=== PATIENT | female | born 1980 | race Caucasian/White ===

== ENCOUNTER 2022-01-24 15:00 | Outpatient (RCR) | payer OTHER, SELFPAY ==
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
== END 2022-04-20 09:37 | disposition home or self-care (01) ==
PROVIDERS: Visit Provider Physician Assistant
DX: M79.641 Pain in right hand (principal); S62.91XA Unspecified fracture of right hand, initial encounter for closed fracture; Z51.89 Encounter for other specified aftercare
CPT/HCPCS: 97110; 97140; X5282

== ENCOUNTER 2022-04-10 11:22 | Outpatient (CLI) | payer OTHER, SELFPAY ==
[2022-04-11 17:25] LABS: Follicle Stimulating Hormone 10.1 IU/L
== END 2022-04-10 11:23 | disposition home or self-care (01) ==
LOC: NFLDREF 11:23
PROVIDERS: PCP Physician Assistant Medical; Visit Provider Obstetrics & Gynecology
DX: Z01.419 Encounter for gynecological examination (general) (routine) without abnormal findings (principal); R63.5 Abnormal weight gain; F32.A Depression, unspecified; R23.2 Flushing
CPT/HCPCS: 83001; 84443

== ENCOUNTER 2022-05-09 12:38 | Outpatient (CLI) | payer OTHER, SELFPAY ==
--- NOTE | 2022-05-09 13:00 | CRLHL7_ITS ---
For Patients: As a result of the Century Cures Act, medical imaging exams and procedure reports are released immediately into your electronic medical record. You may view this report before your referring provider. If you have questions, please contact your health care provider. BILATERAL SCREENING MAMMOGRAM WITH COMPUTER-AIDED DETECTION AND TOMOSYNTHESIS TECHNIQUE: CC and MLO views were obtained. These mammographic images have been obtained using full-field digital technique. These mammographic images were interpreted with the benefit of computer-aided detection. Breast Tomosynthesis was used in this interpretation. COMPARISON FILM: Debary 09/07/15. FINDINGS: There are scattered areas of fibroglandular density IMPRESSION: There is no radiographic evidence for malignancy. ASSESSMENT: BI-RADS Category 1: Negative RECOMMENDATION: Routine screening mammogram in 1 year. A lay language report of this examination will be provided to the patient. Mandeep Prasad M.D. Diagnostic Radiologist [email or web address] CARSON/tyler Transcribed: 7:37 p.m. KENNEY/Dictated by: Mandeep Prasad MD @ 05/15/2022 11:46:00 AM (Electronically Signed)
== END 2022-05-09 12:39 | disposition home or self-care (01) ==
LOC: MAMMO 12:39
PROVIDERS: PCP Physician Assistant Medical; Visit Provider Obstetrics & Gynecology
DX: Z12.31 Encounter for screening mammogram for malignant neoplasm of breast (principal)
CPT/HCPCS: 77063; 77067

== ENCOUNTER 2022-05-14 09:15 | Outpatient (CLI) | payer OTHER, SELFPAY ==
--- NOTE | 2022-05-14 10:15 | MR_ITS ---
[address] [address] Phone:?[phone] Fax:?[phone] Referring Physician Information: Bartolome White [address] [facility] [address] Phone:?[phone] Fax:?[phone] Patient:?Merna Boykin D.O.B:?1980 Sex:?Female Phone:?[phone] [facility] MRN:?[id number] Exam Date:?05/14/2022 ? EXAM: MRI of the RIGHT HAND, without contrast CLINICAL INFORMATION: Female, 42 years old, with right hand pain. INDICATION: Evaluate hand pain. PRIOR SURGERY: None reported. PLAIN FILMS: None available. COMPARISONS: No prior MRIs available. TECHNICAL INFORMATION: Using a 1.5T MR scanner and a localizing surface coil: coronals: PD, T2, STIR sagittals: PD, T2 axials: PD, T2 SEDATION: None. CONTRAST: None. FINDINGS: Chronic-appearing, healed deformity of the 5th metacarpal head/neck (sagittal PD series 7 image 31 and coronal PD series 6 image 9). The osseous structures are otherwise unremarkable without stress/occult fractures, bone marrow edema or osseous mass. The joints of the hand included are intact without pathologic narrowing or effusions. Collateral capsuloligamentous structures of the joints appear intact. Flexor and extensor tendons are intact, without rupture, tendinopathy, tenosynovitis or longitudinal splitting. A skin marker was placed by the patient along the dorsum of the hand at the level of the metacarpals, radially. There is no underlying soft tissue or osseous lesion at this site. Musculature of the hand appears unremarkable without masses, rupture or strain. IMPRESSION: 1. Chronic-appearing, healed deformity of the 5th metacarpal head/neck. No acute fracture or osseous stress reaction. 2. No soft tissue or osseous abnormality identified adjacent to the skin marker placed by the patient. 3. No myotendinous abnormality. 4. No ligamentous sprain/tear. 5. No soft tissue abnormality. BC Electronically signed on 05/14/2022 12:32:00 PM by Braeden Castro M.D.
== END 2022-05-14 09:16 | disposition home or self-care (01) ==
LOC: MRI 09:16
PROVIDERS: PCP Physician Assistant Medical; Visit Provider Physician Assistant
DX: M79.641 Pain in right hand (principal)
CPT/HCPCS: 73218

== ENCOUNTER 2022-05-21 08:32 | Outpatient (CLI) | payer OTHER, SELFPAY ==
[2022-05-21 14:01] LABS: Albumin* 4.7 g/dL (3.3-5.0); Chloride* 105 mmol/L (96-114)
[2022-05-21 14:02] LABS: Potassium* 4.9 mmol/L (3.6-5.1); Sodium* 140 mmol/L (135-149)
[2022-05-21 14:03] LABS: Cholesterol* 169 mg/dL (90-199)
[2022-05-21 14:04] LABS: Alkaline Phosphatase* 66 U/L (40-150); Aspartate Amino Transferase* 26 U/L (12-35); Bilirubin Total* 0.5 mg/dL (0.1-1.5); Blood Urea Nitrogen* 14 mg/dL (5-24); Carbon Dioxide* 28 mmol/L (20-32); Creatinine* 0.8 mg/dL (0.5-1.5); Estimated Glomerular Filt Rate 95 ml/min; Glucose* 79 mg/dL (60-115); Total Protein* 7.2 g/dL (6.0-8.3)
[2022-05-21 14:05] LABS: Alanine Aminotransferase* 19 U/L (4-35); Calcium* 9.5 mg/dL (8.4-10.6); HDL Cholesterol* 59 mg/dL (>=50); LDL Cholesterol Calculated 95 mg/dL (<100); Triglycerides* 77 mg/dL (40-149)
== END 2022-05-21 08:33 | disposition home or self-care (01) ==
PROVIDERS: PCP Family Medicine; Visit Provider Family Medicine
DX: Z01.419 Encounter for gynecological examination (general) (routine) without abnormal findings (principal); F32.A Depression, unspecified; F41.9 Anxiety disorder, unspecified; R63.5 Abnormal weight gain
CPT/HCPCS: 80053; 80061

== ENCOUNTER 2023-06-11 08:37 | Outpatient (CLI) | payer OTHER, SELFPAY ==
--- NOTE | 2023-06-11 09:15 | CRLHL7_ITS ---
For Patients: As a result of the Century Cures Act, medical imaging exams and procedure reports are released immediately into your electronic medical record. You may view this report before your referring provider. If you have questions, please contact your health care provider. BILATERAL SCREENING MAMMOGRAM WITH COMPUTER-AIDED DETECTION AND TOMOSYNTHESIS TECHNIQUE: CC and MLO views were obtained. These mammographic images have been obtained using full-field digital technique. These mammographic images were interpreted with the benefit of computer-aided detection. Breast Tomosynthesis was used in this interpretation. COMPARISON FILM: 05/09/22. FINDINGS: There are scattered areas of fibroglandular density IMPRESSION: There is no radiographic evidence for malignancy. ASSESSMENT: BI-RADS Category 1: Negative RECOMMENDATION: Routine screening mammogram in 1 year. A lay language report of this examination will be provided to the patient. Mandeep Prasad M.D. Diagnostic Radiologist [email or web address] KENNEY/Dictated by: Mandeep Prasad MD @ 06/11/2023 11:12:00 AM (Electronically Signed)
== END 2023-06-11 08:38 | disposition home or self-care (01) ==
LOC: MAMMO 08:39
PROVIDERS: PCP Family Medicine; Visit Provider Obstetrics & Gynecology
DX: Z12.31 Encounter for screening mammogram for malignant neoplasm of breast (principal)
CPT/HCPCS: 77063; 77067

== ENCOUNTER 2023-06-26 08:45 | Outpatient (CLI) | payer OTHER, SELFPAY ==
--- NOTE | 2023-06-26 09:00 | CRLHL7_ITS ---
For Patients: As a result of the 21st Century Cures Act, medical imaging exams and procedure reports are released immediately into your electronic medical record. You may view this report before your referring provider. If you have questions, please contact your health care provider. INDICATION: INDENT APPRECIATED ON LEFT PARIETAL AREA, BURNING SENSATION, CONCERN FOR KYLE-MYLES DISEASE OR OTHER OSTEOLYSIS TECHNIQUE: CT of the head without contrast. Coronal and sagittal reformats. Bone and soft tissue algorithms. COMPARISON: XR 06/14/23 FINDINGS: No acute intracranial hemorrhage or extraaxial collection. No evidence of acute cortical infarction. No mass effect or midline shift. The ventricles and sulci are age appropriate. Orbital contents are normal. No calvarial fractures. No lytic or sclerotic osseous lesions within the calvarium or skull base. Scalp and other imaged soft tissue structures are normal. Mastoid air cells are clear. IMPRESSION: No acute intracranial abnormality. No calvarial lesion. Please note that all CT scans at this facility use dose modulation, iterative reconstruction, and/or weight-based dosing when appropriate to reduce radiation dose to as low as reasonably achievable. Dictated by Mandeep Rose MD @ 06/26/2023 2:06:58 PM (Electronically Signed)
== END 2023-06-26 08:46 | disposition home or self-care (01) ==
LOC: CT 08:45
PROVIDERS: PCP Family Medicine; Visit Provider Family Medicine
DX: R20.8 Other disturbances of skin sensation (principal); Q75.8 Other specified congenital malformations of skull and face bones; R68.89 Other general symptoms and signs
CPT/HCPCS: 70450

== ENCOUNTER 2024-07-03 15:12 | Outpatient (CLI) | payer OTHER, SELFPAY ==
--- NOTE | 2024-07-03 15:30 | CRLHL7_ITS ---
For Patients: As a result of the Century Cures Act, medical imaging exams and procedure reports are released immediately into your electronic medical record. You may view this report before your referring provider. If you have questions, please contact your health care provider. INDICATION: Headache. Ear pressure. COMPARISON: 06/26/2023. TECHNIQUE: Noncontrast CT head. FINDINGS: Normal brain parenchymal morphology and signal intensity. No intracranial hemorrhage. No abnormal ventricular dilatation. Cavum velum interpositum which is a normal anatomic variant. Intracranial vascular flow voids are preserved. No mass effect. No midline shift. No restricted diffusion to suggest acute ischemia. No abnormal enhancing or enhancing lesions within the brain parenchyma. Dedicated sequence of the skullbase and IAC`s demonstrates normal course of cranial nerves 7 and 8 from the root entry zone to the fundus of the IAC`s. Normal fluid signal within the cochlea and vestibule. Normal root entry zone of the bilateral trigeminal nerves. No abnormal mass or enhancement within cerebellopontine angles or IAC`s. Bilateral orbits are unremarkable. Normal appearing sella. Visualized paranasal sinuses are unremarkable. Small left mastoid effusion. IMPRESSION: 1. No acute intracranial abnormality 2. Normal brain parenchymal morphology and signal intensity. 3. No abnormal enhancement or enhancing lesions 4. Dedicated sequences of the skull base and IAC`s demonstrates normal course of cranial nerves. No abnormal mass or enhancement 5. Small left mastoid effusion Dictated by Lonnie Juan MD @ 07/06/2024 10:45:39 AM (Electronically Signed)
== END 2024-07-03 15:13 | disposition home or self-care (01) ==
LOC: MRI 15:14
PROVIDERS: PCP Family Medicine; Visit Provider Family Medicine
DX: R51.9 Headache, unspecified (principal); H74.8X1 Other specified disorders of right middle ear and mastoid; H93.19 Tinnitus, unspecified ear
CPT/HCPCS: 70553; A9575

== ENCOUNTER 2024-07-28 09:50 | Outpatient (CLI) | payer OTHER, SELFPAY | END 2024-07-28 09:51 | disposition home or self-care (01) | PROVIDERS: PCP Family Medicine; Visit Provider Family Medicine | DX: R25.2 Cramp and spasm (principal); Z13.228 Encounter for screening for other metabolic disorders; Z13.220 Encounter for screening for lipoid disorders | CPT/HCPCS: 80053; 80061; 83735 ==

== ENCOUNTER 2024-09-10 14:29 | Outpatient (CLI) | payer OTHER, SELFPAY ==
--- NOTE | 2024-09-29 12:05 | W.PM.SLEEP ---
Sleep Study Details Details Interpreting Provider: Hipolito Date of Sleep Study: 09/10/24 Sleep Study Details: STUDY TYPE:? Home unattended ? BMI:? Not recorded ORDERING PROVIDER:? Hipolito INDICATION:? Concerned about sleep apnea ? SLEEP SUMMARY:? 393 minutes monitored RESPIRATORY SUMMARY:? AHI 13.1 Low oxygen 84 0.3% of study oxygen less than 90% Snoring 99.4% PERIODIC LIMB MOVEMENTS OF SLEEP:? Not recorded CARDIAC:? Range 51-107, mean 63.5 IMPRESSION:? Mild obstructive sleep apnea RECOMMENDATION: Treatment options include CPAP, dental appliance and/or airway expansion surgery.
== END 2024-09-10 14:30 | disposition home or self-care (01) ==
LOC: SLEEP 14:30
PROVIDERS: PCP Family Medicine; Visit Provider Otolaryngology
DX: G47.33 Obstructive sleep apnea (adult) (pediatric) (principal)
CPT/HCPCS: 95806

== ENCOUNTER 2024-10-13 13:17 | Outpatient (CLI) | payer OTHER, SELFPAY ==
--- NOTE | 2024-10-13 13:40 | CRLHL7_ITS ---
For Patients: As a result of the Century Cures Act, medical imaging exams and procedure reports are released immediately into your electronic medical record. You may view this report before your referring provider. If you have questions, please contact your health care provider. INDICATION: BILATERAL SCREENING MAMMOGRAM, ASYMPTOMATIC 42F COMPARISON: 06/11/23, 05/09/22, 09/07/15 TECHNIQUE: CC and MLO views were obtained. These mammographic images have been obtained using full-field digital technique. These mammographic images were interpreted with the benefit of computer aided detection and tomosynthesis. BREAST COMPOSITION: There are scattered areas of fibroglandular density. FINDINGS: No suspicious findings. ASSESSMENT: BI-RADS 1 Negative RECOMMENDATION: Annual screening mammogram. A lay language report of this examination will be provided to the patient. Dictated by: Mandeep Prasad MD @ 10/21/2024 12:23:20 (Electronically Signed)
== END 2024-10-13 13:18 | disposition home or self-care (01) ==
LOC: MAMMO 13:17
PROVIDERS: PCP Family Medicine; Visit Provider Family Medicine
DX: Z12.31 Encounter for screening mammogram for malignant neoplasm of breast (principal)
CPT/HCPCS: 77063; 77067

== ENCOUNTER 2024-10-15 09:26 | Outpatient (CLI) | payer OTHER, SELFPAY | END 2024-10-15 09:27 | disposition home or self-care (01) | LOC: NFLDREF 10-21 01:51 | PROVIDERS: PCP Family Medicine; Referring Provider Family Medicine | DX: R82.90 Unspecified abnormal findings in urine (principal) | CPT/HCPCS: 87086 ==

== ENCOUNTER 2024-11-12 14:00 | Outpatient (CLI) | payer OTHER, SELFPAY | END 2024-11-12 14:01 | disposition home or self-care (01) | LOC: NFLDREF 11-19 22:10 | PROVIDERS: PCP Family Medicine; Referring Provider Family Medicine; Visit Provider Family Medicine | DX: R82.90 Unspecified abnormal findings in urine (principal) | CPT/HCPCS: 87086 ==

== ENCOUNTER 2024-11-20 09:48 | Day surgery (SDC) | payer OTHER, SELFPAY ==
[2024-11-20] VITALS (16 sets, daily range): BP systolic 125–158; BP diastolic 77–99; PULSE 62–93; RESP 12–16; TEMP 36.3–36.9; O2SAT 95–99; BMI 38.4
[2024-11-20] MEDS: LACTATED RINGERS 1000 ML 1,000 ML 100 ML IV ×2 (09:55→13:03)
[2024-11-20] MEDS: OXYMETAZOLINE 0.05% NASAL SPRAY 2 SPRAY NOSTRIL-B (10:02)
[2024-11-20] MEDS: SODIUM CHLORIDE 0.9 % (FLUSH) 10 ML SYRINGE IVF (10:12)
--- NOTE | 2024-11-20 11:27 | P.ANES_ITS ---
Anesthesia Charges Start Date/Time Anesthesia Start Date: 11/20/24 Anesthesia Start Time: 11:54 Stop Date/Time Anesthesia Stop Date: 11/20/24 Anesthesia Stop Time: 12:30 Coding CPT Codes CPT Codes: ANESTH NOSE/SINUS SURGERY - 70015 ([id number]) P3 - PATIENT W/SEVERE SYS DISEASE, QK - INSURANCE SALES SUPERVISOR 2-4 CNCRNT ANES PROC, QX - MECHANICS SUPERVISOR SVC W/ MD MED DIRECTION
--- NOTE | 2024-11-20 11:27 | W.ANESCHARGE ---
Anesthesia Charges Start Date/Time Anesthesia Start Date: 11/20/24 Anesthesia Start Time: 11:54 Stop Date/Time Anesthesia Stop Date: 11/20/24 Anesthesia Stop Time: 12:30 Coding CPT Codes CPT Codes: ANESTH NOSE/SINUS SURGERY - 05749 ([id number]) P3 - PATIENT W/SEVERE SYS DISEASE, QK - SENIOR MOBILE DEVELOPER 2-4 CNCRNT ANES PROC, QX - AERONAUTICS TEACHER SVC W/ MD MED DIRECTION
[2024-11-20] MEDS: COCAINE HCL 4 % 4 ML SOLUTION NOSTRIL-B (12:18)
[2024-11-20] MEDS: BUPIVACAINE 0.5%/EPINEPHRINE 0.9 MG (30.9 ML) INJECTION (12:18)
[2024-11-20] MEDS: AYR SALINE NASAL GEL 1 APPLIC NOSTRIL-B (12:19)
--- NOTE | 2024-11-20 12:19 | W.PM.ENTPROC ---
Procedure Note Date of procedure: 11/20/24 Procedure: Preop diagnosis bilateral nasal obstruction, bilateral inferior turbinate hypertrophy unresponsive to inhaled nasal steroid spray, nasal headache Postoperative diagnosis same Procedure submucous partial resection inferior turbinates bilateral Under general trach anesthesia patient was prepped draped usual fashion and the nose decongested injected. A stab incision was made the anterior of the right inferior turbinate a tunnel created with a Gretchen dissector. The brooke bone was outfractured and a conservative anterior submucous resection performed. The Coblation was used for hemostasis and to cauterize intramurally along the inferior 10%. This was repeated on the left side in identical fashion. The right left middle turbinate was simply crushed with the Valentino forceps. Merocel packing coated in Bactroban was placed just beneath the inferior turbinates on each side. The patient procedure well was taken recovery in satisfactory condition. Blood loss was 5 mL. Surgeon: Omid Mcmillan MD
--- NOTE | 2024-11-20 12:31 | P.ANES_ITS ---
Anesthesia Charges Start Date/Time Anesthesia Start Date: 11/20/24 Anesthesia Start Time: 11:54 Stop Date/Time Anesthesia Stop Date: 11/20/24 Anesthesia Stop Time: 12:30 Coding CPT Codes CPT Codes: ANESTH NOSE/SINUS SURGERY - 69959 ([id number]) P3 - PATIENT W/SEVERE SYS DISEASE, QK - LATHE SET UP PERSON 2-4 CNCRNT ANES PROC, QX - MORTGAGE LOAN SPECIALIST SVC W/ MD MED DIRECTION
--- NOTE | 2024-11-20 12:31 | W.ANESCHARGE ---
Anesthesia Charges Start Date/Time Anesthesia Start Date: 11/20/24 Anesthesia Start Time: 11:54 Stop Date/Time Anesthesia Stop Date: 11/20/24 Anesthesia Stop Time: 12:30 Coding CPT Codes CPT Codes: ANESTH NOSE/SINUS SURGERY - 55445 ([id number]) P3 - PATIENT W/SEVERE SYS DISEASE, QK - ARBITRATOR 2-4 CNCRNT ANES PROC, QX - CONSTRUCTION TRENCH DIGGER SVC W/ MD MED DIRECTION
[2024-11-20] MEDS: fentaNYL 100 MCG/2 ML inj 50 MCG IVP ×2 (12:40→12:47)
[2024-11-20] MEDS: METOCLOPRAMIDE HCL 5 MG/ML INJ 10 MG IVP (14:04)
[2024-11-20] MEDS: ACETAMINOPHEN 325 MG TABLET PO (14:34)
== END 2024-11-20 14:46 | disposition home or self-care (01) ==
LOC: OR 09:50
PROVIDERS: PCP Family Medicine; Visit Provider Otolaryngology
PROC: (CPT 30140; principal; 2024-11-20 11:15)
DX: J34.3 Hypertrophy of nasal turbinates (principal); J34.89 Other specified disorders of nose and nasal sinuses; R51.9 Headache, unspecified
CPT/HCPCS: 30140; 00160; A9270; J0330; J1100; J2405; J2704; J2765; J3010; J7120